=== PATIENT | female | born 1960 | race African-American/Black ===

== ENCOUNTER 2021-01-20 18:17 | Emergency (ER) | payer SELFPAY ==
[~2021-01-20] VITALS: Ht 160 cm; Wt 56.7 kg
[2021-01-20 18:17] VITALS: BP 128/72
== END 2021-01-20 18:44 | disposition left against medical advice (07) ==
LOC: EDBD 18:17 → ER 18:22
DX: T50.7X1A Poisoning by analeptics and opioid receptor antagonists, accidental (unintentional), initial encounter (principal); Z53.21 Procedure and treatment not carried out due to patient leaving prior to being seen by health care provider; Y92.89 Other specified places as the place of occurrence of the external cause

== ENCOUNTER → 2021-07-03 | Emergency (ER) | payer BC, OTHER ==
[~2021-07-03] VITALS: Ht 160 cm; Wt 61.2 kg
[~2021-07-03] MED LIST: InsuLIN REG 1unit/0.01ml Soln (100units/ml) IV ONE; InsuLIN REG 1unit/0.01ml Soln (100units/ml) SC ONE; SODIUM CHLORIDE 0.9% 1,000 ML IV ONE
[2021-07-03 13:32] LABS: Basophils # (auto) 0 10 ^3/uL (0-0.2); Basophils % (auto) 0.5 % (0.0-2.0); Eosinophils # (auto) 0 10 ^3/uL (0-0.8); Eosinophils % (auto) 0.4 % (0.0-7.0); Hematocrit 47.4 % (36.0-46.0); Hemoglobin 15.5 g/dL (12.2-16.2); Lymphocytes # (auto) 1.5 10 ^3/uL (0.4-5.4); Lymphocytes % (auto) 16.9 % (10.0-50.0); Mean Corpuscular Hgb Conc. 32.7 g/dL (32.0-36.0); Mean Corpuscular Volume 97.9 fL (80.0-100.0); Monocytes # (auto) 0.5 10 ^3/uL (0-1.3); Monocytes % (auto) 5.2 % (0.0-12.0); Nucleated Red Blood Cells % 0.1 %; Red Blood Cells 4.84 10^6/uL (4.0-5.20); Red Cell Distribution Width 12.3 % (11.8-14.3); White Blood Cell 9.1 10^3/uL (4.4-10.8)
[2021-07-03 13:41] LABS: Albumin 3.6 g/dL (3.4-5.0); Calcium 8.2 mg/dL (8.5-10.1); Magnesium 2.7 mg/dL (1.6-2.6)
[2021-07-03 13:43] LABS: Bilirubin, Total 0.4 mg/dL (0.2-1.0); Total Protein 6.8 g/dL (6.4-8.2)
[2021-07-03 21:08] VITALS: BP 128/63
== END | disposition home or self-care (01) ==
LOC: ER 11:21
DX: E11.65 Type 2 diabetes mellitus with hyperglycemia (principal); N17.9 Acute kidney failure, unspecified; R42 Dizziness and giddiness; R53.1 Weakness
CPT/HCPCS: 36415; 80053; 82962; 83735; 84484; 85025; 93005; 96360; 96361; 96372; 99284; J1815; J7030

== ENCOUNTER 2021-07-04 20:44 | Emergency (ER) | payer BC ==
[~2021-07-04] VITALS: Ht 160 cm; Wt 61.2 kg
[2021-07-04 22:13] LABS: Basophils # (auto) 0.1 10 ^3/uL (0-0.2); Basophils % (auto) 0.6 % (0.0-2.0); Eosinophils # (auto) 0.1 10 ^3/uL (0-0.8); Hematocrit 46.7 % (36.0-46.0); Hemoglobin 15.8 g/dL (12.2-16.2); Lymphocytes % (auto) 31.8 % (10.0-50.0); Mean Corpuscular Hemoglobin 32.8 pg (28.0-32.0); Mean Corpuscular Hgb Conc. 33.7 g/dL (32.0-36.0); Mean Corpuscular Volume 97.3 fL (80.0-100.0); Monocytes # (auto) 0.9 10 ^3/uL (0-1.3); Neutrophils # (auto) 5.5 10 ^3/uL (1.6-8.6); Neutrophils % (auto) 57.6 % (37.0-80.0); Nucleated Red Blood Cells % 0.1 %; Red Cell Distribution Width 12.6 % (11.8-14.3); White Blood Cell 9.5 10^3/uL (4.4-10.8)
[2021-07-04 22:32] LABS: Albumin 3.8 g/dL (3.4-5.0); Calcium 8.9 mg/dL (8.5-10.1); Potassium 4.5 mmol/L (3.5-5.1)
[2021-07-04 22:34] LABS: BUN/Creatinine Ratio 16.2
[2021-07-04 22:36] LABS: Bilirubin, Total 0.3 mg/dL (0.2-1.0); Total Protein 6.9 g/dL (6.4-8.2)
[2021-07-05 01:00] VITALS: BP 129/69
== END 2021-07-05 01:11 | disposition home or self-care (01) ==
LOC: ER 20:44
DX: E11.65 Type 2 diabetes mellitus with hyperglycemia (principal); R42 Dizziness and giddiness; I10 Essential (primary) hypertension
CPT/HCPCS: 36415; 80053; 85025

== ENCOUNTER 2021-09-20 14:56 | Emergency (ER) | payer BC ==
[~2021-09-20] VITALS: Ht 160 cm; Wt 58.1 kg
[2021-09-20 15:51] VITALS: BP 124/68
== END 2021-09-20 15:57 | disposition home or self-care (01) ==
LOC: ER 14:56
DX: H60.02 Abscess of left external ear (principal); E11.9 Type 2 diabetes mellitus without complications; I10 Essential (primary) hypertension; Z48.03 Encounter for change or removal of drains
CPT/HCPCS: 10060; 69200

== ENCOUNTER 2022-10-30 20:42 | Inpatient (IN) | payer BC ==
[~2022-10-30] VITALS: Ht 157.5 cm; Wt 54.8 kg
[2022-10-30 21:25] LABS: Eosinophils # (auto) 0 10 ^3/uL (0-0.8); Eosinophils % (auto) 0.1 % (0.0-7.0); Neutrophils # (auto) 11.7 10 ^3/uL (1.6-8.6)
[2022-10-30 21:26] LABS: Basophils # (auto) 0 10 ^3/uL (0-0.2); Basophils % (auto) 0.2 % (0.0-2.0); Hemoglobin 13.9 g/dL (12.2-16.2); Lymphocytes # (auto) 1.5 10 ^3/uL (0.4-5.4); Mean Corpuscular Hemoglobin 30.8 pg (28.0-32.0); Mean Corpuscular Hgb Conc. 33.8 g/dL (32.0-36.0); Monocytes # (auto) 1.4 10 ^3/uL (0-1.3); Monocytes % (auto) 9.4 % (0.0-12.0); Neutrophils % (auto) 80.3 % (37.0-80.0); Red Cell Distribution Width 12.7 % (11.8-14.3); White Blood Cell 14.6 10^3/uL (4.4-10.8)
[2022-10-30] MEDS ORDERED: MORPHINE SULFATE 4 MG/ML SYR/VIAL IV ONE (21:30)
[2022-10-30] MEDS ORDERED: VANCOMYCIN 1GM/250ML 250 ML IV ONE (21:30)
[2022-10-30] MEDS ORDERED: ALBUTEROL SULF 2.5 MG/0.5ML(0.5%) NEB SOLN NEB ONE (21:30)
[2022-10-30] MEDS ORDERED: DexAMETHasone SOD PHOS 10MG/1ML VIAL INJ IV ONE (21:30)
[2022-10-30] MEDS ORDERED: PIPERACILLIN-TAZOB 3.375GM 100 ML IV ONE (21:30)
[2022-10-30] MEDS ORDERED: IPRATROPIUM BROM 0.5 MG/2.5ML INH SOL NEB ONE (21:30)
[2022-10-30] MEDS ORDERED: LACTATED RINGER'S 1,950 ML IV ONE (21:30)
[2022-10-30] MEDS ORDERED: ONDANSETRON HCL 4 MG/2 ML VIAL IV ONE (21:30)
[2022-10-30 21:42] LABS: Albumin 3.2 g/dL (3.4-5.0); BUN/Creatinine Ratio 12.7 (10.0-20.0); Calcium 9.9 mg/dL (8.5-10.1); Potassium 4.8 mmol/L (3.5-5.1)
[2022-10-30 21:45] LABS: Bilirubin, Total 0.4 mg/dL (0.2-1.0); Total Protein 8.3 g/dL (6.4-8.2)
[2022-10-30 22:54] LABS: INR 1.03 (0.9-1.15); Partial Thromboplastin Time 32.2 sec (24.6-33.4)
[2022-10-30] MEDS ORDERED: LACTATED RINGER'S 1,550 ML IV ONE (23:00)
[2022-10-30] MEDS ORDERED: IOHEXOL 350 MG/ML 100ML IJ ONE (23:30)
[2022-10-31] MEDS ORDERED: DOCUSATE SOD 100 MG CAP PO PRN (02:15)
[2022-10-31] MEDS ORDERED: ALBUTEROL SULF 2.5 MG/0.5ML(0.5%) NEB SOLN NEB PRN (02:15)
[2022-10-31] MEDS ORDERED: NITROGLYCERIN 0.4 MG SL TAB SL PRN (02:15)
[2022-10-31] MEDS: SODIUM CHLORIDE 0.9% 1,000 ML IV SCH (02:15)
[2022-10-31] MEDS ORDERED: ACETAMINOPHEN 325 MG TAB PO PRN (02:15)
[2022-10-31] MEDS ORDERED: MORPHINE SULFATE INJ 2 MG/ml SYRG IV PRN (02:15)
[2022-10-31] MEDS ORDERED: VANCOMYCIN PER PHARMACY 0 MG IV SCH (02:15)
[2022-10-31] MEDS ORDERED: DEXTROSE (50%) 50ML SYRG IV PRN (02:15)
[2022-10-31 03:33] VITALS: BP 127/76
[2022-10-31] MEDS: ACCU-CHEK COMFORT CURVE STRIP VI SCH ×4 (06:30→22:00)
[2022-10-31] MEDS: InsuLIN REG 1unit/0.01ml Soln (100units/ml) SC SCH ×4 (06:31→22:00)
[2022-10-31] MEDS: methylPREDNISolone SOD SUCC 40 MG/ML VL IV SCH ×3 (06:31→22:51)
[2022-10-31 06:47] LABS: BUN/Creatinine Ratio 15.3 (10.0-20.0); Bilirubin, Total 0.4 mg/dL (0.2-1.0); Calcium 9.5 mg/dL (8.5-10.1); Total Protein 7.4 g/dL (6.4-8.2)
[2022-10-31 06:51] LABS: Potassium 5.7 mmol/L (3.5-5.1)
[2022-10-31] MEDS ORDERED: SODIUM ZIRCONIUM CYCL 10 GM PAK PO ONE (07:00)
[2022-10-31 07:05] LABS: Basophils # (auto) 0 10 ^3/uL (0-0.2); Eosinophils # (auto) 0 10 ^3/uL (0-0.8); Red Cell Distribution Width 12.9 % (11.8-14.3); White Blood Cell 14.3 10^3/uL (4.4-10.8)
[2022-10-31 07:07] LABS: Basophils % (auto) 0.1 % (0.0-2.0); Eosinophils % (auto) 0.1 % (0.0-7.0); Hematocrit 41.9 % (36.0-46.0); Hemoglobin 14.2 g/dL (12.2-16.2); Lymphocytes # (auto) 0.6 10 ^3/uL (0.4-5.4); Lymphocytes % (auto) 4.6 % (10.0-50.0); Mean Corpuscular Hemoglobin 30.9 pg (28.0-32.0); Mean Corpuscular Volume 90.8 fL (80.0-100.0); Monocytes # (auto) 0.2 10 ^3/uL (0-1.3); Monocytes % (auto) 1.1 % (0.0-12.0); Neutrophils # (auto) 13.4 10 ^3/uL (1.6-8.6); Neutrophils % (auto) 94.1 % (37.0-80.0); Nucleated Red Blood Cells % 0.1 %; Red Blood Cells 4.62 10^6/uL (4.0-5.20)
[2022-10-31] MEDS: cefTRIAXone 1GM/50ML D5W 50 ML IV SCH (09:12)
[2022-10-31] MEDS: FAMOTIDINE (10MG/ML) 2ML VL IV SCH ×2 (10:28→22:51)
[2022-10-31] MEDS: ASPirin 81 mg TAB PO SCH (10:29)
[2022-10-31] MEDS: VANCOMYCIN 1GM/250ML 250 ML IV SCH ×2 (10:55→22:51)
[2022-10-31 13:23] LABS: BUN/Creatinine Ratio 21.1 (10.0-20.0); Calcium 9.1 mg/dL (8.5-10.1); Potassium 4.6 mmol/L (3.5-5.1)
[2022-10-31] MEDS: MORPHINE SULFATE INJ 2 MG/ml SYRG IV PRN ×2 (15:44→19:55)
[2022-10-31] MEDS: MELATONIN 5 MG TAB PO SCH (22:50)
[2022-10-31] MEDS ORDERED: LISI-287 PO (22:56)
[2022-10-31] MEDS ORDERED: METH750T22 PO (22:56)
[2022-10-31] MEDS ORDERED: GLIP-110 PO (22:56)
[2022-10-31] MEDS ORDERED: AMIT1TAB35 PO (22:56)
[2022-10-31] MEDS ORDERED: METF-370 PO (22:56)
[2022-10-31] MEDS ORDERED: FLUO20CA90 PO (22:56)
[2022-10-31] MEDS ORDERED: AMLO-496 PO (22:56)
[2022-10-31] MEDS ORDERED: GABA-339 PO (22:56)
[2022-10-31 23:00] VITALS: BP 135/67
[2022-11-01 05:00] VITALS: BP 137/71
[2022-11-01] MEDS: MORPHINE SULFATE INJ 2 MG/ml SYRG IV PRN ×3 (05:48→22:36)
[2022-11-01 06:05] LABS: Basophils # (auto) 0 10 ^3/uL (0-0.2); Basophils % (auto) 0.2 % (0.0-2.0); Eosinophils # (auto) 0 10 ^3/uL (0-0.8); Monocytes # (auto) 1.1 10 ^3/uL (0-1.3); Red Cell Distribution Width 12.8 % (11.8-14.3)
[2022-11-01 06:07] LABS: Hematocrit 41.6 % (36.0-46.0); Hemoglobin 14.4 g/dL (12.2-16.2); Lymphocytes # (auto) 1.1 10 ^3/uL (0.4-5.4); Lymphocytes % (auto) 4.6 % (10.0-50.0); Mean Corpuscular Hemoglobin 30.7 pg (28.0-32.0); Mean Corpuscular Hgb Conc. 34.6 g/dL (32.0-36.0); Mean Corpuscular Volume 88.7 fL (80.0-100.0); Monocytes % (auto) 4.6 % (0.0-12.0); Neutrophils # (auto) 20.6 10 ^3/uL (1.6-8.6); Neutrophils % (auto) 90.6 % (37.0-80.0); Red Blood Cells 4.69 10^6/uL (4.0-5.20); White Blood Cell 22.8 10^3/uL (4.4-10.8)
[2022-11-01 06:25] LABS: Albumin 2.8 g/dL (3.4-5.0); Calcium 9.7 mg/dL (8.5-10.1); Potassium 4.7 mmol/L (3.5-5.1)
[2022-11-01] MEDS: methylPREDNISolone SOD SUCC 40 MG/ML VL IV SCH ×2 (06:29→21:07)
[2022-11-01 06:30] LABS: BUN/Creatinine Ratio 21.2 (10.0-20.0); Bilirubin, Total 0.4 mg/dL (0.2-1.0)
[2022-11-01] MEDS: ACCU-CHEK COMFORT CURVE STRIP VI SCH ×4 (06:42→21:32)
[2022-11-01] MEDS: InsuLIN REG 1unit/0.01ml Soln (100units/ml) SC SCH ×4 (06:43→21:33)
[2022-11-01 09:00] VITALS: BP 127/69
[2022-11-01 09:08] VITALS: BP 115/62
[2022-11-01] MEDS: cefTRIAXone 1GM/50ML D5W 50 ML IV SCH (10:22)
[2022-11-01] MEDS: ASPirin 81 mg TAB PO SCH (10:22)
[2022-11-01] MEDS: FAMOTIDINE (10MG/ML) 2ML VL IV SCH ×2 (10:22→21:07)
[2022-11-01] MEDS: SODIUM CHLORIDE 0.9% 1,000 ML IV SCH ×2 (10:25→11:35)
[2022-11-01] MEDS: VANCOMYCIN 1GM/250ML 250 ML IV SCH ×2 (12:04→21:06)
[2022-11-01 17:33] VITALS: BP 137/76
[2022-11-01] MEDS ORDERED: HYDROcodone-ACET 5/325MG TAB PO PRN (17:45)
[2022-11-01] MEDS: MELATONIN 5 MG TAB PO SCH (21:08)
[2022-11-01 22:00] VITALS: BP 144/66
[2022-11-01] MEDS: ONDANSETRON HCL 4 MG/2 ML VIAL IV PRN (22:36)
[2022-11-02] MEDS: SODIUM CHLORIDE 0.9% 1,000 ML IV SCH (04:15)
[2022-11-02 05:00] VITALS: BP 120/65
[2022-11-02] MEDS: ONDANSETRON HCL 4 MG/2 ML VIAL IV PRN (05:21)
[2022-11-02] MEDS: MORPHINE SULFATE INJ 2 MG/ml SYRG IV PRN (05:21)
[2022-11-02] MEDS: ACCU-CHEK COMFORT CURVE STRIP VI SCH ×2 (06:20→11:55)
[2022-11-02] MEDS: InsuLIN REG 1unit/0.01ml Soln (100units/ml) SC SCH ×2 (06:23→11:30)
[2022-11-02 07:24] LABS: Basophils # (auto) 0 10 ^3/uL (0-0.2); Eosinophils # (auto) 0 10 ^3/uL (0-0.8); Lymphocytes # (auto) 0.8 10 ^3/uL (0.4-5.4); Monocytes # (auto) 0.4 10 ^3/uL (0-1.3)
[2022-11-02 07:25] LABS: Basophils % (auto) 0.2 % (0.0-2.0); Hematocrit 40.2 % (36.0-46.0); Hemoglobin 13.3 g/dL (12.2-16.2); Lymphocytes % (auto) 5.1 % (10.0-50.0); Mean Corpuscular Hemoglobin 29.8 pg (28.0-32.0); Mean Corpuscular Volume 90.3 fL (80.0-100.0); Monocytes % (auto) 2.5 % (0.0-12.0); Neutrophils # (auto) 13.9 10 ^3/uL (1.6-8.6); Neutrophils % (auto) 92.2 % (37.0-80.0); Red Blood Cells 4.45 10^6/uL (4.0-5.20); White Blood Cell 15.1 10^3/uL (4.4-10.8)
[2022-11-02] MEDS: VANCOMYCIN 1GM/250ML 250 ML IV SCH (08:24)
[2022-11-02] MEDS: cefTRIAXone 1GM/50ML D5W 50 ML IV SCH (08:24)
[2022-11-02 08:46] VITALS: BP_SYST 10; BP_SYST 110; BP_DIAS 63
[2022-11-02] MEDS: methylPREDNISolone SOD SUCC 40 MG/ML VL IV SCH (09:22)
[2022-11-02] MEDS: FAMOTIDINE (10MG/ML) 2ML VL IV SCH (09:22)
[2022-11-02] MEDS: ASPirin 81 mg TAB PO SCH (09:23)
[2022-11-02] MEDS ORDERED: LEVO500T31 PO (10:00)
[2022-11-02] MEDS ORDERED: CLIN300C8 PO (10:00)
[2022-11-02] MEDS ORDERED: FLUoxetine HCL 20 MG CAP PO SCH (10:00)
[2022-11-02] MEDS ORDERED: ALBUAER3 IN (10:01)
[2022-11-02 10:39] VITALS: BP 110/63
[2022-11-02 12:44] VITALS: BP 137/87
[2022-11-03 12:07] LABS: Hepatitis C Antibody Negative (Negative)
== END 2022-11-02 12:45 | disposition home health service (06) | DRG 189 ==
LOC: EDBD 20:42 → ER 20:42 → TELE 10-31 02:45 → TELE-WESTW 10-31 22:10
PROVIDERS: ADMIT Nurse Practitioner Family; ATTEND Internal Medicine
DX: J96.01 Acute respiratory failure with hypoxia (principal); J15.211 Pneumonia due to Methicillin susceptible Staphylococcus aureus; J44.1 Chronic obstructive pulmonary disease with (acute) exacerbation; E87.1 Hypo-osmolality and hyponatremia; J44.0 Chronic obstructive pulmonary disease with (acute) lower respiratory infection; J98.11 Atelectasis; I10 Essential (primary) hypertension; D75.839 Thrombocytosis, unspecified; E88.09 Other disorders of plasma-protein metabolism, not elsewhere classified; F17.210 Nicotine dependence, cigarettes, uncomplicated; E87.5 Hyperkalemia; R91.8 Other nonspecific abnormal finding of lung field; Z20.822 Contact with and (suspected) exposure to COVID-19; G89.29 Other chronic pain; M54.50 Low back pain, unspecified; E11.40 Type 2 diabetes mellitus with diabetic neuropathy, unspecified; F32.9 Major depressive disorder, single episode, unspecified; F41.9 Anxiety disorder, unspecified; Z79.84 Long term (current) use of oral hypoglycemic drugs; Z83.3 Family history of diabetes mellitus; Z82.49 Family history of ischemic heart disease and other diseases of the circulatory system; Z79.899 Other long term (current) drug therapy
CPT/HCPCS: 36415; 36600; 71045; 71275; 80048; 80053; 80202; 82565; 82805; 82962; 83036; 83880; 84484; 85025; 85379; 85610; 85730; 86635; 86703; 86803; 87040; 87077; 87186; 87340; 87426; 93306; 94640; 96361; 96365; 96367; 96375; 97163; 99291; G0378; J0696; J1100; J1815; J2405; J2543; J3490

== ENCOUNTER 2025-05-24 05:57 | Inpatient (IN) | payer BC ==
[~2025-05-24] VITALS: Ht 154.9 cm; Wt 64.5 kg
[2025-05-24] VITALS (13 sets, daily range): BP systolic 121–152; BP diastolic 63–85; PULSE 78–108; RESP 11–18; TEMP 97.7–98.8; O2SAT 85–100
[~2025-05-24 05:57] MED LIST changes: +ALBUAER3 IN; +AMIT-118 PO; +AMLO1TAB23 PO; +CLIN1CAP70 PO; +FLUO-470 PO; +GABA-339 PO; +GLIP-110 PO; -InsuLIN REG 1unit/0.01ml Soln (100units/ml) IV ONE; -InsuLIN REG 1unit/0.01ml Soln (100units/ml) SC ONE; +LEVO500T31 PO; +LISI-287 PO; +METF-370 PO; +METH-1182 PO; -SODIUM CHLORIDE 0.9% 1,000 ML IV ONE
[2025-05-24] MEDS: methylPREDNISolone SOD SUCC 125 MG/2 ML VL IV ONE (07:00)
--- NOTE | 2025-05-24 07:21 | ED.PDOC ---
History of Present Illness HPI Comments 65-year-old female presents to the ER with prior medical history of LEVELOCK, hypertension, diabetes: Surgical history of and a chief complaint of a possible allergic reaction. Patient reports on taking lisinopril this morning for which swelled up her tongue causing the patient to have shortness a breath. Patient is currently on 2 L via NC 97%. Denies any other symptoms at this time. Denies chills, fever, N/V/D, CP. No other associated symptoms, modifiers, recent injuries or sick contacts present at this time. Chief Complaint: Allergic Reaction Time Seen by MD: 07:20 Primary Care Provider: GILDARDO Reviewed Notes: Nurses Notes, Medications, Allergies Allergies: Coded Allergies: Codeine (Verified Allergy, Unknown, ITCHY, 10/30/22) Home Meds Active Scripts Albuterol Sulfate (VENTOLIN MDI) 90 Mcg Ih, 90 MCG IN Q6HP PRN, #1 INHALER Prov:LAISHA HUNG MD 11/02/22 Clindamycin Hcl (Clindamycin Hcl) 300 Mg Cap, 300 MG PO Q8HR, #72 TAB Prov:LAISHA HUNG MD 11/02/22 Levofloxacin (Levaquin) 500 Mg Tab, 500 MG PO DAILY, #7 TAB Prov:LAISHA HUNG MD 11/02/22 Reported Medications Lisinopril & Hydrochlorothiazi (Lisinopril/Hydrochlorothi) 1 Tab Tab, 1 TAB PO DAILY 10/31/22 Methocarbamol (Methocarbamol) 750 Mg Tab, 1 TAB PO TIDP 10/31/22 Gabapentin (Gabapentin) 600 Mg Tab, 1 TAB PO TIDPRN 10/31/22 Amitriptyline HCl (Amitriptyline HCl) 25 Mg Tab, 1 TAB PO DAILY 10/31/22 Metformin Hydrochloride (Metformin Hcl) 500 Mg Tab, 2 TAB PO BID 10/31/22 Fluoxetine HCl (Fluoxetine HCl) 20 Mg Cap, 1 CAP PO DAILY 10/31/22 Amlodipine Besylate (Amlodipine Besylate) 10 Mg Tab, 1 TAB PO DAILY 10/31/22 Glipizide (Glipizide Er) 5 Mg Tab, 2 TAB PO BID 10/31/22 Information Source: Patient Mode of Arrival: Ambulatory Severity: Moderate Timing: Came on: Suddenly Duration: Since onset Prehospital treatment: None Past Medical History PAST MEDICAL HISTORY: DM, HTN Past Medical History (Other): LEVELOCK 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 Family History Family History: Reviewed,noncontributory to illness Social History Smoker: Quit Greater Than 1 Year Alcohol: Denies ETOH Use Drugs: Denies Drug Use Lives In: Home Constitutional: denies: chills, diaphoresis, fatigue, fever, malaise, sweats, weakness, others EENTM: denies: blurred vision, double vision, ear bleeding, ear discharge, ear drainage, ear pain, ear ringing, eye pain, eye redness, hearing loss, mouth pain, mouth swelling, nasal discharge, nose bleeding, nose congestion, nose pain, photophobia, tearing, throat pain, throat swelling, voice changes, others Respiratory: denies: cough, hemoptysis, orthopnea, SOB at rest, shortness of breath, SOB with excertion, stridor, wheezing, others Cardiovascular: denies: chest pain, dizzy spells, diaphoresis, Dyspnea on exertion, edema, irregular heart beat, left arm pain, lightheadedness, palpit ations, PND, syncope, others Gastrointestinal: denies: abdomen distended, abdominal pain, blood streaked b owels, constipated, diarrhea, dysphagia, difficulty swallowing, hematemesis, melena, nausea, poor appetite, poor fluid intake, rectal bleeding, rectal pain, vomiting, others Genitourinary: denies: abnormal vagina bleeding, burning, dyspareunia, dysuria, flank pain, frequency, hematuria, incontinence, pain, , vagina discharge, urgency, others Neurological: denies: dizziness, fainting, headache, left sided numbness, left sided weakness, numbness, paresthesia, pre-existing deficit, right sided numbness, right sided weakness, seizure, speech problems, tingling, tremors, weakness, others Musculoskeletal: denies: back pain, gout, joint pain, joint swelling, muscle pain, muscle stiffness, neck pain, others Integumetry: reports: others (Tongue swelling); denies: bruises, change in color, change in hair/nails, dryness, laceration, lesions, lumps, rash, wounds Allergic/Immunocompromised: denies: Difficulty Healing, Frequent Infections, Hives, Itching, others Hematologic/Lymphatic: denies: anemia, blood clots, easy bleeding, easy bruising, swollen glands, others Endocrine: denies: excessive hunger, excessive sweating, excessive thirst, excessive urination, flushing, intolerance to cold, intolerance to heat, unexplained weight gain, unexplained weight loss, others Psychiatric: denies: anxiety, bipolar disorder, depression, hopeless, panic disorder, schizophrenia, sleepless, suicidal, others All Other Systems: Reviewed and Negative Physical Exam General Appearance: Moderate Distress, No Apparent Distress, Normal HEENT: Pharynx Normal, TMs Normal, Other (Mild swelling of the tongue) Neck: Full Range of Motion, Non-Tender, Normal, Normal Inspection Respiratory: Chest Non-Tender, Lungs Clear, No Accessory Muscle Use, No Respiratory Distress, Normal Breath Sounds Cardiovascular: No Edema, No JVD, No Murmur, No Gallop, Normal Peripheral Pulses, Regular Rate/Rhythm Breast Exam: Deferred Gastrointestinal: No Organomegaly, Non Tender, No Pulsatile Mass, Normal Bowel Sounds, Soft Genitalia: Deferred Pelvic: Deferred Rectal: Deferred Extremities: No calf tenderness, Normal capillary refill, Normal inspection, Normal range of motion, Non-tender, No pedal edema Musculoskeletal : Apperance: Normal Neurologic: Alert, integrated circuit design engineer II-XII nml as Tested, No Motor Deficits, Normal Affect, Normal Mood, No Sensory Deficits Cerebellar Function: Normal Reflexes: Normal Skin: Dry, Normal Color, Warm Peripheral Pulses: 3+ Radial (R), 3+ Radial (L) Lymphatic: No Adenopathy Was a procedure done? Was a procedure done?: No Differential Dx Considerations may include: Drug reaction X-Ray, Labs, Meds, VS Vital Signs Date Time Temp Pulse Resp B/P (MAP) Pulse Ox O2 Delivery O2 Flow Rate FiO2 05/24/25 07:42 86 11 99 Nasal Cannula* 2 28 05/24/25 07:42 98.4 86 11 121/63 (82) 99 98.4 05/24/25 06:30 98.5 84 13 140/62 (88) 91 98.5 05/24/25 06:30 84 13 91 Room Air* 0 21 05/24/25 06:05 98.3 97 20 146/87 92 98.3 Lab Test 05/24/25 07:25 05/24/25 07:02 Range/Units Urine Color Light-yellow Yellow Urine Clarity Clear Clear Urine pH 6.0 5.0-9.0 Urine Specific [place] 1.015 1.001-1.035 Urine Protein Negative Negative Urine Ketones Negative Negative Urine Blood Negative Negative /uL Urine Nitrite Negative Negative Urine Bilirubin Negative Negative Urine Urobilinogen Normal Negative mg/dL Urine Leukocyte Esterase Negative Negative /uL Urine RBC 1 0 - 4 /hpf Urine Microscopic WBC < 1 0-5 /HPF Urine Squamous Epithelial Cells Few <5 /hpf Urine Bacteria None seen None Seen /hpf Urine Glucose Normal Normal mg/dL White Blood Count 8.1 4.4-10.8 10^3/uL Red Blood Count 4.24 4.0-5.20 10^6/uL Hemoglobin 11.3 L 12.2-16.2 g/dL Hematocrit 34.6 L 36.0-46.0 % Mean Corpuscular Volume 81.6 80.0-100.0 fL Mean Corpuscular Hemoglobin 26.6 L 28.0-32.0 pg Mean Corpuscular Hemoglobin Concent 32.5 32.0-36.0 g/dL Red Cell Distribution Width 19.3 H 11.8-14.3 % Platelet Count 485 H 140-450 10^3/uL Mean Platelet Volume 7.3 6.9-10.8 fL Neutrophils (%) (Auto) 60.7 37.0-80.0 % Lymphocytes (%) (Auto) 26.2 10.0-50.0 % Monocytes (%) (Auto) 9.7 0.0-12.0 % Eosinophils (%) (Auto) 2.5 0.0-7.0 % Basophils (%) (Auto) 0.9 0.0-2.0 % Neutrophils # (Auto) 4.9 1.6-8.6 10 ^3/uL Lymphocytes # (Auto) 2.1 0.4-5.4 10 ^3/uL Monocytes # (Auto) 0.8 0-1.3 10 ^3/uL Eosinophils # (Auto) 0.2 0-0.8 10 ^3/uL Basophils # (Auto) 0.1 0-0.2 10 ^3/uL Nucleated Red Blood Cells 0.1 % Sodium Level 138 136-145 mmol/L Potassium Level 5.2 H 3.5-5.1 mmol/L Chloride Level 103 98-107 mmol/L Carbon Dioxide Level 26 20-31 mmol/L Anion Gap 9 5-15 Blood Urea Nitrogen 13 9-23 mg/dL Creatinine 0.96 0.550-1.02 mg/dL Glomerular Filtration Rate Calc 66 >90 mL/min BUN/Creatinine Ratio 13.5 10.0-20.0 Serum Glucose 150 H 74-106 mg/dL Calcium Level 9.0 8.7-10.4 mg/dL Troponin I High Sensitivity 4 </=34 ng/L Current Medications Medications (Trade) Dose Ordered Sig/Yanni Route Start Time Stop Time Status Last Admin Methylprednisolone Sodium Succinate (Solu Medrol) 125 mg ONCE ONCE IV 05/24/25 07:00 05/24/25 07:01 DC 05/24/25 07:00 Patient alert. Has a swelling of the tongue. Vitals stable. Answering questions. No sign of any distress. Good air entry. Blood sugar elevated. Cardiac marker within normal limits. Was given steroid. States that she is feeling much better. Potassium slightly elevated. Explained to the patient. Continue monitoring. Time of 1ST Reevaluation: 07:50 Reevaluation 1ST: Improved Patient Education/Counseling: Diagnosis, Treatment, Prognosis Family Education/Counseling: No Family Present SEPSIS Sepsis Screen Date sepsis recognized/suspect: May 24, 2025 Time Sepsis recognized/suspect: 647 Recent Procedure: No On Antibiotic Therapy: No Respiratory Rate >20: No Heart Rate >90: No Temp<36 C (96.8 F) or >38.3 C: No SBP <90 or MAP <65 mmHG: No New Acute Mental Status Change: No Is the patient on CPAP, BIPAP,: No Vital Signs Date Time Temp Pulse Resp B/P (MAP) Pulse Ox O2 Delivery O2 Flow Rate FiO2 05/24/25 07:42 86 11 99 Nasal Cannula* 2 28 05/24/25 07:42 98.4 86 11 121/63 (82) 99 98.4 05/24/25 06:30 98.5 84 13 140/62 (88) 91 98.5 05/24/25 06:30 84 13 91 Room Air* 0 21 05/24/25 06:05 98.3 97 20 146/87 92 98.3 Laboratory Tests Test 05/24/25 07:02 White Blood Count 8.1 10^3/uL (4.4-10.8) Medications Medications Dose Ordered Sig/Yanni Route Start Time Stop Time Status Last Admin Dose Admin Methylprednisolone Sodium Succinate 125 mg ONCE ONCE IV 05/24/25 07:00 05/24/25 07:01 DC 05/24/25 07:00 Departure 1 Departure Time of Disposition: : Impression: Primary Impression: Hyperkalemia Additional Impressions: Angioedema Qualified Codes: T78.3XXA - Angioneurotic edema, initial encounter Uncontrolled diabetes mellitus Qualified Codes: E13.65 - Other specified diabetes mellitus with hyperglycemia Disposition: ADMITTED INPATIENT Admit to: Med Surg Condition: Guarded Critical Care Note Critical Care Time?: No Stability Stability form required: No Heart Score Heart Score: Heart Score Response (Comments) Value History N/A 0 EKG N/A 0 Age N/A 0 Risk Factors N/A 0 Troponin N/A 0 Total 0 I personally scribed for ESTEBAN BRIDGES MD ([email or web address]) on 05/24/25 at 07:21. Electronically submitted by Thuan Gil ([email or web address]). ESTEBAN BRIDGES MD May 24, 2025 07:21
[2025-05-24 07:25] LABS: Nucleated Red Blood Cells % 0.1 %
[2025-05-24 07:26] LABS: Hematocrit 34.6 % (36.0-46.0); Hemoglobin 11.3 g/dL (12.2-16.2); Mean Corpuscular Hemoglobin 26.6 pg (28.0-32.0); Mean Corpuscular Volume 81.6 fL (80.0-100.0)
[2025-05-24 07:31] LABS: Chloride 103 mmol/L (98-107); Sodium 138 mmol/L (136-145)
[2025-05-24 07:32] LABS: Anion Gap 9 (5-15); Calcium 9.0 mg/dL (8.7-10.4); Carbon Dioxide 26 mmol/L (20-31)
[2025-05-24 07:39] LABS: BUN/Creatinine Ratio 13.5 (10.0-20.0); Blood Urea Nitrogen 13 mg/dL (9-23); Glucose 150 mg/dL (74-106); Potassium 5.2 mmol/L (3.5-5.1)
[2025-05-24 08:03] LABS: Urine Protein, UAD Negative (Negative)
[2025-05-24] MEDS ORDERED: ONDANSETRON HCL 4 MG/2 ML VIAL IV PRN (10:15)
[2025-05-24] MEDS ORDERED: DEXTROSE (50%) 50ML SYRG IV PRN (10:15)
[2025-05-24] MEDS ORDERED: diphenhydrAMINE HCL 50 MG/1 ML VL IV PRN (10:15)
--- NOTE | 2025-05-24 10:36 | DVHHP2 ---
History of Present Illness Reason for Visit: Anaphylaxis History of Present Illness Johny Fishman is a 65-year-old female with past medical history of right ear implant, diabetes, hypertension, hard of hearing, and who presents to the ED with tongue swelling and shortness of breath that started at 5:30 a.m. this morning. Patient reports that she takes lisinopril at home and had taken it last night and when she woke up this morning around 530 she saw her tongue swollen. Patient reports that she is compliant with her medications. Patient denies any recent trauma or injury, recent sick contacts, recent travels, recent ingestion of spoiled food, chest pain, fever, chills, lightheadedness, weakness, dizziness, abdominal pain, nausea, vomiting, diarrhea, or urinary symptoms. Patient will be admitted for management of anaphylaxis. Cardiovascular: HTN Endocrine: Diabetes Past Medical History Hard of hearing Past Surgical History: , Other (Right ear implant) Family History: CAD, Other (Patient reports that mom has cancer does not know which type and dad also has cancer does not know which type.) Smoke: No ALCOHOL: none Drugs: None Lives: with Family Domestic Violence: Neg Review of Systems Other Allergic reaction Allergies: Coded Allergies: Codeine (Verified Allergy, Unknown, ITCHY, 10/30/22) Exam Vital Signs Vital Signs Date Time Temp Pulse Resp B/P (MAP) Pulse Ox O2 Delivery O2 Flow Rate FiO2 05/24/25 07:42 86 11 99 Nasal Cannula* 2 28 05/24/25 07:42 98.4 121/63 (82) 98.4 General Appearance: Alert, Oriented X3, Cooperative, No acute distress HEENT: Atraumatic, PERRLA, EOMI, Mucous membr. moist/pink Respiratory: Clear to auscultation, Normal air movement Cardiovascular: Normal S1, Normal S2 Abdominal: Normal bowel sounds, Soft Extremities: No clubbing, No cyanosis, Normal pulses Neuro: Normal gait, Normal speech, Strength at 5/5 X4 ext, Normal tone, Sensation intact Psych/Mental Status: Mental status NL, Mood NL Labs/Xrays Labs Test 05/24/25 07:25 05/24/25 07:02 Range/Units Urine Color Light-yellow Yellow Urine Clarity Clear Clear Urine pH 6.0 5.0-9.0 Urine Specific [place] 1.015 1.001-1.035 Urine Protein Negative Negative Urine Ketones Negative Negative Urine Blood Negative Negative /uL Urine Nitrite Negative Negative Urine Bilirubin Negative Negative Urine Urobilinogen Normal Negative mg/dL Urine Leukocyte Esterase Negative Negative /uL Urine RBC 1 0 - 4 /hpf Urine Microscopic WBC < 1 0-5 /HPF Urine Squamous Epithelial Cells Few <5 /hpf Urine Bacteria None seen None Seen /hpf Urine Glucose Normal Normal mg/dL White Blood Count 8.1 4.4-10.8 10^3/uL Red Blood Count 4.24 4.0-5.20 10^6/uL Hemoglobin 11.3 L 12.2-16.2 g/dL Hematocrit 34.6 L 36.0-46.0 % Mean Corpuscular Volume 81.6 80.0-100.0 fL Mean Corpuscular Hemoglobin 26.6 L 28.0-32.0 pg Mean Corpuscular Hemoglobin Concent 32.5 32.0-36.0 g/dL Red Cell Distribution Width 19.3 H 11.8-14.3 % Platelet Count 485 H 140-450 10^3/uL Mean Platelet Volume 7.3 6.9-10.8 fL Neutrophils (%) (Auto) 60.7 37.0-80.0 % Lymphocytes (%) (Auto) 26.2 10.0-50.0 % Monocytes (%) (Auto) 9.7 0.0-12.0 % Eosinophils (%) (Auto) 2.5 0.0-7.0 % Basophils (%) (Auto) 0.9 0.0-2.0 % Neutrophils # (Auto) 4.9 1.6-8.6 10 ^3/uL Lymphocytes # (Auto) 2.1 0.4-5.4 10 ^3/uL Monocytes # (Auto) 0.8 0-1.3 10 ^3/uL Eosinophils # (Auto) 0.2 0-0.8 10 ^3/uL Basophils # (Auto) 0.1 0-0.2 10 ^3/uL Nucleated Red Blood Cells 0.1 % Sodium Level 138 136-145 mmol/L Potassium Level 5.2 H 3.5-5.1 mmol/L Chloride Level 103 98-107 mmol/L Carbon Dioxide Level 26 20-31 mmol/L Anion Gap 9 5-15 Blood Urea Nitrogen 13 9-23 mg/dL Creatinine 0.96 0.550-1.02 mg/dL Glomerular Filtration Rate Calc 66 >90 mL/min BUN/Creatinine Ratio 13.5 10.0-20.0 Serum Glucose 150 H 74-106 mg/dL Calcium Level 9.0 8.7-10.4 mg/dL Troponin I High Sensitivity 4 </=34 ng/L CHEST RADIOGRAPH Indication: sob Technique: Single frontal view of the chest was obtained Comparison: XY CHEST TWO VIEWS ROUTINE on DOS: 11/02/22, XY CHEST PORTABLE on DOS: 10/30/22 FINDINGS: Lines and Tubes: None Lungs: Bibasilar airspace opacities. Pleura: No effusion. No pneumothorax. Cardiomediastinal contours: Unremarkable Bones: No acute osseous abnormality. IMPRESSION: Bibasilar airspace opacities SEPSIS Sepsis Screen Date sepsis recognized/suspect: May 24, 2025 Time Sepsis recognized/suspect: 647 Recent Procedure: No On Antibiotic Therapy: No Respiratory Rate >20: No Heart Rate >90: No Temp<36 C (96.8 F) or >38.3 C: No SBP <90 or MAP <65 mmHG: No New Acute Mental Status Change: No Is the patient on CPAP, BIPAP,: No Vital Signs Date Time Temp Pulse Resp B/P (MAP) Pulse Ox O2 Delivery O2 Flow Rate FiO2 05/24/25 07:42 86 11 99 Nasal Cannula* 2 28 05/24/25 07:42 98.4 86 11 121/63 (82) 99 98.4 05/24/25 06:30 98.5 84 13 140/62 (88) 91 98.5 05/24/25 06:30 84 13 91 Room Air* 0 21 05/24/25 06:05 98.3 97 20 146/87 92 98.3 Laboratory Tests Test 05/24/25 07:02 White Blood Count 8.1 10^3/uL (4.4-10.8) Medications Medications Dose Ordered Sig/Yanni Route Start Time Stop Time Status Last Admin Dose Admin Methylprednisolone Sodium Succinate 125 mg ONCE ONCE IV 05/24/25 07:00 05/24/25 07:01 DC 05/24/25 07:00 125 MG Assessment/Plan Assessment/Plan Assessment/plan Anaphylaxis Acute hypoxic respiratory failure on supplemental oxygen -Chest x-ray -UA -IV steroids -H2 blockers -Duo nebs -antiemetics Hyperkalemia -[place] Diabetes -hemoglobin A1c -ISS and Accu-Cheks History of hypertension History of hard of hearing status post right ear implant History of -resume home medications Diet Home medications reconciled DVT and PUD prophylaxis Discussed plan of care with patient and nurse [id number] Preventive counseling healthy eating habits, physical activity, and regular checkups Plan discussed with: Patient Date of Service: May 24, 2025 Billing Provider: JEFFRY REINA Common Visit Codes: [id number] INP/OBS CARE (HIGH) Secondary Visit Codes: 74009-[id number] COUNSELING IND JEFFRY REINA May 24, 2025 10:36
--- NOTE | 2025-05-24 10:57 | DVH ---
CHEST RADIOGRAPH Indication: sob Technique: Single frontal view of the chest was obtained Comparison: XY CHEST TWO VIEWS ROUTINE on DOS: 11/02/22, XY CHEST PORTABLE on DOS: 10/30/22 FINDINGS: Lines and Tubes: None Lungs: Bibasilar airspace opacities. Pleura: No effusion. No pneumothorax. Cardiomediastinal contours: Unremarkable Bones: No acute osseous abnormality. IMPRESSION: Bibasilar airspace opacities
[2025-05-24] MEDS: SODIUM ZIRCONIUM CYCL 10 GM PAK PO ONE (11:11)
[2025-05-24] MEDS: ACCU-CHEK COMFORT CURVE STRIP VI SCH (11:50)
[2025-05-24] MEDS: InsuLIN REG 1unit/0.01ml Soln (100units/ml) SC SCH (11:51)
[2025-05-24] MEDS: IPRATROPIUM BROM 0.5 MG/2.5ML INH SOL NEB PRN (13:23)
[2025-05-24] MEDS: ALBUTEROL SULF 2.5 MG/0.5ML(0.5%) NEB SOLN NEB SCH (13:23)
[2025-05-24] MEDS: METHOCARBAMOL PO SCH (14:00)
[2025-05-24] MEDS: GABAPENTIN 300 MG CAP PO SCH (15:20)
[2025-05-24] MEDS: methylPREDNISolone SOD SUCC 125 MG/2 ML VL IV SCH (15:20)
[2025-05-24] MEDS: hydroCHLOROthiazide 25 MG TAB PO SCH (18:17)
[2025-05-24] MEDS: ACETAMINOPHEN 325 MG TAB PO PRN (21:35)
[2025-05-25] VITALS (9 sets, daily range): BP systolic 107–153; BP diastolic 58–90; PULSE 79–101; RESP 16–20; TEMP 96.6–98.7; O2SAT 92–97
[2025-05-25 06:44] LABS: Hemoglobin 12.8 g/dL (12.2-16.2); Mean Corpuscular Volume 81.4 fL (80.0-100.0); Nucleated Red Blood Cells % 0.1 %
[2025-05-25 06:46] LABS: Hematocrit 39.8 % (36.0-46.0); Mean Corpuscular Hemoglobin 26.2 pg (28.0-32.0)
[2025-05-25 07:07] LABS: Alanine Aminotransferase 14 U/L (7-40); Albumin 4.6 g/dL (3.2-4.8); Anion Gap 11 (5-15); BUN/Creatinine Ratio 15.3 (10.0-20.0); Blood Urea Nitrogen 15 mg/dL (9-23); Calcium 9.5 mg/dL (8.7-10.4); Carbon Dioxide 26 mmol/L (20-31); Chloride 100 mmol/L (98-107); Potassium 4.4 mmol/L (3.5-5.1); Sodium 137 mmol/L (136-145); Total Protein 7.8 g/dL (5.7-8.2)
[2025-05-25 07:09] LABS: Alkaline Phosphatase 137 U/L (46-116); Bilirubin, Total 0.3 mg/dL (0.2-1.0); Glucose 279 mg/dL (74-106)
[2025-05-25] MEDS ORDERED: ALBUTEROL SULF 2.5 MG/0.5ML(0.5%) NEB SOLN NEB PRN (07:30)
[2025-05-25] MEDS: FAMOTIDINE (10MG/ML) 2ML VL IV SCH (09:53)
[2025-05-25] MEDS: AMITRIPTYLINE HCL 25 MG TAB PO SCH (09:55)
[2025-05-25] MEDS ORDERED: PRED20TA2 PO (13:27)
[2025-05-25] MEDS ORDERED: HYDR25TA4 PO (13:29)
[2025-05-25] MEDS ORDERED: DEXTROSE (50%) 50ML SYRG IV PRN (13:30)
[2025-05-25] MEDS: ACCU-CHEK COMFORT CURVE STRIP VI SCH (15:34)
[2025-05-25] MEDS: InsuLIN REG 1unit/0.01ml Soln (100units/ml) SC SCH (16:00)
--- NOTE | 2025-05-26 11:14 | DVHDS2 ---
Discharge Summary Date of Admission May 24, 2025 at 10:12 Date of Discharge: May 25, 2025 Admitting Diagnosis Anaphylactic reaction Labs/Diagnostic Data: Laboratory Results Test 05/25/25 11:16 05/25/25 05:28 05/24/25 07:25 05/24/25 07:02 POC Glucose 354 mg/dl (70-106) White Blood Count 8.1 10^3/uL (4.4-10.8) Red Blood Count 4.89 10^6/uL (4.0-5.20) Hemoglobin 12.8 g/dL (12.2-16.2) Hematocrit 39.8 % (36.0-46.0) Mean Corpuscular Volume 81.4 fL (80.0-100.0) Mean Corpuscular Hemoglobin 26.2 pg (28.0-32.0) Mean Corpuscular Hemoglobin Concent 32.2 g/dL (32.0-36.0) Red Cell Distribution Width 19.9 % (11.8-14.3) Platelet Count 564 10^3/uL (140-450) Mean Platelet Volume 7.8 fL (6.9-10.8) Neutrophils (%) (Auto) 80.3 % (37.0-80.0) Lymphocytes (%) (Auto) 15.4 % (10.0-50.0) Monocytes (%) (Auto) 4.1 % (0.0-12.0) Eosinophils (%) (Auto) 0.0 % (0.0-7.0) Basophils (%) (Auto) 0.2 % (0.0-2.0) Neutrophils # (Auto) 6.5 10 ^3/uL (1.6-8.6) Lymphocytes # (Auto) 1.2 10 ^3/uL (0.4-5.4) Monocytes # (Auto) 0.3 10 ^3/uL (0-1.3) Eosinophils # (Auto) 0 10 ^3/uL (0-0.8) Basophils # (Auto) 0 10 ^3/uL (0-0.2) Nucleated Red Blood Cells 0.1 % Sodium Level 137 mmol/L (136-145) Potassium Level 4.4 mmol/L (3.5-5.1) Chloride Level 100 mmol/L (98-107) Carbon Dioxide Level 26 mmol/L (20-31) Anion Gap 11 (5-15) Blood Urea Nitrogen 15 mg/dL (9-23) Creatinine 0.98 mg/dL (0.550-1.02) Glomerular Filtration Rate Calc 64 mL/min (>90) BUN/Creatinine Ratio 15.3 (10.0-20.0) Serum Glucose 279 mg/dL (74-106) Calcium Level 9.5 mg/dL (8.7-10.4) Total Bilirubin 0.3 mg/dL (0.2-1.0) Aspartate Amino Transferase (AST) 14 U/L (13-40) Alanine Aminotransferase (ALT) 14 U/L (7-40) Alkaline Phosphatase 137 U/L (46-116) Total Protein 7.8 g/dL (5.7-8.2) Albumin 4.6 g/dL (3.2-4.8) Urine Color Light-yellow (Yellow) Urine Clarity Clear (Clear) Urine pH 6.0 (5.0-9.0) Urine Specific [place] 1.015 (1.001-1.035) Urine Protein Negative (Negative) Urine Ketones Negative (Negative) Urine Blood Negative /uL (Negative) Urine Nitrite Negative (Negative) Urine Bilirubin Negative (Negative) Urine Urobilinogen Normal mg/dL (Negative) Urine Leukocyte Esterase Negative /uL (Negative) Urine RBC 1 /hpf (0 - 4) Urine Microscopic WBC < 1 /HPF (0-5) Urine Squamous Epithelial Cells Few /hpf (<5) Urine Bacteria None seen /hpf (None Seen) Urine Glucose Normal mg/dL (Normal) Hemoglobin A1c 8.7 % A1C (<5.7) Troponin I High Sensitivity 4 ng/L (</=34) Other Laboratory Tests 05/25/25 05:28 Brief Hx & Hospital Course: History of Present Illness Johny Fishman is a 65-year-old female with past medical history of right ear implant, diabetes, hypertension, hard of hearing, and who presents to the ED with tongue swelling and shortness of breath that started at 5:30 a.m. this morning. Patient reports that she takes lisinopril at home and had taken it last night and when she woke up this morning around 530 she saw her tongue swollen. Patient reports that she is compliant with her medications. Course of hospitalization: Patient was started on Solu-Medrol, antihistamines, as well as regular insulin sliding scale and antihypertensives. Patient is now off of oxygen supplementation. Patient has no respiratory symptoms at this time. She reports that her tongue is now of normal size in his requesting to be discharged home. Patient's blood sugars are elevated secondary to steroids. Regular insulin sliding scale we will be increased and with improved glycemic control, patient will be discharged home with prednisone 20 mg p.o. b.i.d. for the next 48 hours. She is instructed not to take her prescribed lisinopril/hydrochlorothiazide. Patient will be prescribed hydrochlorothiazide 25 mg p.o. daily in addition to amlodipine that she is currently on for blood pressure control. She is instructed to follow up with Dr. Le 1-2 weeks. Patient was agreeable with discharge plan. All questions answered. Physical examination General: Alert and Oriented x3. No acute distress. Well-nourished. Eyes: EOMI. Anicteric. HENT: Moist mucous membranes. Lungs: Clear to auscultation bilaterally. No accessory muscle use. Cardiovascular: Regular rate and rhythm. No murmur. No JVD. Abdomen: Soft, non-tender and non-distended. No palpable masses. Extremities: No edema. Non-tender. Skin: No rashes or lesions. Warm. Neurologic: No focal neurological deficits. CN II-XII grossly intact, but not individually tested. Psychiatric: Cooperative. Appropriate mood and affect. Total time spent with patient discussing and formulating plan of care: 35 minutes. This medical document was created using an electronic medical record system with [employer] dictation system. Although this document has been carefully reviewed, there may still be some phonetic and typographical errors. These areas are purely typographical due to imperfections of the software programs, and do not reflect any compromise in the patient's medical care. Condition at Discharge: Fair Final Diagnosis/Problems List Anaphylactic reaction secondary to GOVIND inhibitors Diabetes mellitus with hyperglycemia Primary hypertension Discharge Disposition: Home Discharge Instruct/Medications Diet: Cardiac 2g Na,low cholest Activity: No Restrictions, As Tolerated Follow Up/Referral: Follow up with PCP, Dr. Le in 1-2 weeks Medications: Stop hydrochlorothiazide/lisinopril Hydrochlorothiazide 25 mg p.o. daily Continue amlodipine Prednisone 20 mg p.o. b.i.d. for two days Scheduled Amitriptyline HCl (Amitriptyline HCl), 1 TAB PO DAILY, (Reported) Amlodipine Besylate (Amlodipine Besylate), 1 TAB PO DAILY, (Reported) Clindamycin Hcl (Clindamycin Hcl), 300 MG PO Q8HR Fluoxetine HCl (Fluoxetine HCl), 1 CAP PO DAILY, (Reported) Gabapentin (Gabapentin), 1 TAB PO TIDPRN, (Reported) Glipizide (Glipizide Er), 2 TAB PO BID, (Reported) Hydrochlorothiazide (Hydrochlorothiazide), 1 TAB PO DAILY Levofloxacin (Levaquin), 500 MG PO DAILY Lisinopril & Hydrochlorothiazi (Lisinopril/Hydrochlorothi), 1 TAB PO DAILY, (Reported) Metformin Hydrochloride (Metformin Hcl), 2 TAB PO BID, (Reported) Methocarbamol (Methocarbamol), 1 TAB PO TIDP, (Reported) Prednisone (Prednisone), 20 MG PO BID Scheduled PRN Albuterol Sulfate (Ventolin Mdi), 90 MCG IN Q6HP PRN 36 Discharge Statement: "Patient was advised to return to the ER or call 911 if any headaches, dizziness, shortness of breath, chest pain, abdominal pain, bleeding, fevers, or worsening of medical condition. Patient was counseled about treatment plan, medications, possible side effects, patientverbalized understanding. All questions were answered to the best of my ability. This discharge took greater then 30 minutes in planning, reviewing documentation, counseling the patient, and discussing with other team members." ASSESSMENT ASSESSMENT Assessment Anaphylactic reaction secondary to GOVIND inhibitors Date of Service: May 25, 2025 Billing Provider: BLAYNE BANERJEE NP Common Visit Codes: 97135-BWV/OBS DISCH DAY >30min BLAYNE BANERJEE NP May 25, 2025 13:37
== END 2025-05-25 17:25 | disposition home or self-care (01) | DRG 915 ==
LOC: ER 05:57 → OVERFLOW 10:12 → WEST WING 11:14
PROVIDERS: ADMIT Nurse Practitioner Acute Care; ATTEND Nurse Practitioner Acute Care
DX: T88.6XXA Anaphylactic reaction due to adverse effect of correct drug or medicament properly administered, initial encounter (principal); J96.01 Acute respiratory failure with hypoxia; E87.5 Hyperkalemia; I10 Essential (primary) hypertension; E11.65 Type 2 diabetes mellitus with hyperglycemia; T38.0X5A Adverse effect of glucocorticoids and synthetic analogues, initial encounter; T46.4X5A Adverse effect of angiotensin-converting-enzyme inhibitors, initial encounter; Z88.5 Allergy status to narcotic agent; Z87.891 Personal history of nicotine dependence; Z80.9 Family history of malignant neoplasm, unspecified; Z82.49 Family history of ischemic heart disease and other diseases of the circulatory system; Z79.899 Other long term (current) drug therapy; Y92.89 Other specified places as the place of occurrence of the external cause
CPT/HCPCS: 36415; 71045; 80048; 80053; 81001; 82962; 83036; 84484; 85025; 94640; 96374; 96375; G0378; J1815; J3490